=== PATIENT | female | born 1950 | race Caucasian/White ===

== ENCOUNTER 2020-09-19 16:49 | Emergency (ER) | payer MEDICARE ==
[2020-09-19 16:54] VITALS: BP 167/83; PULSE 78; RESP 16; TEMP 98.2
--- NOTE | 2020-09-19 17:57 | CT ---
EXAMINATION TYPE: CT brain mirna suarez DATE OF EXAM: 09/19/2020 COMPARISON: None HISTORY: Posterior head injury today with neck pain. CT DLP: 1359.2 mGycm Automated exposure control for dose reduction was used. There is mild cerebral atrophy. There is no mass effect nor midline shift. There is no sign of intrac ranial hemorrhage. The calvarium is intact. The skull base is intact. There is normal aeration of the mastoid sinuses. The cervical vertebra have normal alignment. There is some narrowing at the C5-6 and C6-7 disc spaces with spur formation. There is no compression fracture. The rounded sclerotic foci noted in the C2 an d C4 vertebral bodies which could be bone islands. IMPRESSION: Cerebral atrophy. No acute intracranial abnormality. Minor spondylotic changes in the cervical spine. No fracture. Rounded sclerotic foci in the vertebral bodies could be bone island. Metastatic disease not excluded.
--- NOTE | 2020-09-19 18:33 | ED ---
General Adult HPI - General Chief complaint: Head Injury Stated complaint: fall Time Seen by Provider: 09/19/20 16:58 Source: patient Mode of arrival: wheelchair Limitations: no limitations - History of Present Illness Initial comments: 69-year-old female presents to emergency Department with a chief complaint of headache injury. [place] and fell on the occipital region of the head. This was from a standing ground level. She denies any loss of consciousness but states there was some bleeding. Her tetanus is up-to-date. She denies any blood thinners. She reports some gait instability but otherwise feels well. She denies any visual changes, one- sided weakness or paresthesias. Denies any neck pain. - Related Data Allergies Allergy/AdvReac Type Severity Reaction Status Date / Time No Known Allergies Allergy Verified 09/19/20 16:51 Review of Systems ROS Statement: Those systems with pertinent positive or pertinent negative responses have been documented in the HPI. ROS Other: All systems not noted in ROS Statement are negative. Past Medical History Past Medical History: No Reported History History of Any Multi-Drug Resistant Organisms: None Reported Additional Past Surgical History / Comment(s): Kidney Past Psychological History: No Psychological Hx Reported Smoking Status: Never smoker Past Alcohol Use History: Occasional Past Drug Use History: None Reported General Exam Limitations: no limitations General appearance: alert, in no apparent distress Head exam: Present: atraumatic, normocephalic. Absent: normal inspection (Small abrasion and hematoma on the occipital region of the head.), other (Negative Hall sign, raccoon eyes, type and.) Eye exam: Present: normal appearance, PERRL Pupils: Present: normal accommodation ENT exam: Present: normal exam, normal oropharynx, mucous membranes moist Neck exam: Present: normal inspection, full ROM. Absent: tenderness Respiratory exam: Present: normal lung sounds bilaterally. Absent: respiratory distress, wheezes, rales, rhonchi, stridor Cardiovascular Exam: Present: regular rate, normal rhythm, normal heart sounds. Absent: systolic murmur, diastolic murmur Extremities exam: Present: normal inspection, full ROM, normal capillary refill. Absent: tenderness Back exam: Present: normal inspection, full ROM Neurological exam: Present: alert, oriented X3 Psychiatric exam: Present: normal affect, normal mood Skin exam: Present: warm, dry, intact, normal color Course Vital Signs 09/19/20 16:51 Temperature 98.2 F Pulse Rate 78 Respiratory 16 Rate Blood Pressure 167/83 O2 Sat by Pulse 98 Oximetry Disposition Clinical Impression: Concussion without loss of consciousness Disposition: HOME SELF-CARE Condition: Stable Instructions (If sedation given, give patient instructions): Concussion (ED) Additional Instructions: Please return to the Emergency Department if symptoms worsen or any other concerns. Is patient prescribed a controlled substance at d/c from ED?: No Referrals: Nonstaff,Physician [Primary Care Provider] - 1-2 days Time of Disposition: 18:33
== END 2020-09-19 18:51 | disposition home or self-care (01) ==
LOC: EC 16:49
DX: S06.0X0A Concussion without loss of consciousness, initial encounter (principal); W01.198A Fall on same level from slipping, tripping and stumbling with subsequent striking against other object, initial encounter; Y92.814 Boat as the place of occurrence of the external cause
CPT/HCPCS: 70450; 72125; 99284